=== PATIENT | female | born 1955 | race Caucasian/White ===

== ENCOUNTER 2018-03-18 12:52 | Day surgery (SDC) | payer BC ==
[2018-03-18] MEDS ORDERED: PROPOFOL 20 ML (15:30)
== END 2018-03-18 16:37 | disposition home or self-care (01) ==
LOC: GIL 12:52
DX: Z12.11 Encounter for screening for malignant neoplasm of colon (principal); K29.70 Gastritis, unspecified, without bleeding; K44.9 Diaphragmatic hernia without obstruction or gangrene
CPT/HCPCS: 43239; 88305